=== PATIENT | male | born 1965 | race Caucasian/White ===

== ENCOUNTER → 2017-11-23 12:21 | Outpatient (CLI) | payer OTHER, SELFPAY ==
--- NOTE | 2017-11-23 12:30 | STEWCON_ITS ---
Reason For Study: CHEST PAIN Stress Results Protocol: Osvaldo Protocol Maximum Predicted HR: 170 bpm Target HR: 145 bpm% Max imum Predicted HR: 108 % DurationHeart Rate Stage (mm:ss) (bpm) BPCom ment BASELINE 73 118/70 .3 CC DEFINITY STAGE 1 3:00 11 4 162/88 STAGE 2 3:00 13 4 180/86 STAGE 3 3:00 16 6 200/76 STAGE 4 2:00 18 4 / .2 CC DEFINITY RECOVERY 97 130/76 Stress Duration: 11:00 mm:ss Maximum Stress HR: 184 bpmME TS: 13 Baseline Echocardiogram Findings Stress Echo Wall motion Data Resting WMIntermediate WMStress WM Resting Wall Motion Wall Motion Stress All segments Normal. All segments Hyperkinetic. Ejection Fraction 60 %. Ejection Fraction 75 %. Stress Results Heart rate response: appropriate Blood pressure response: normal resting BP - exaggerated response Arrhythmias: rare PVC during exercise Functional capacity: good Stopped secondary to: dsypnea. EKG Data The baseline ECG displays normal sinus rhythm. Peak exercise ECG: No obvious ECG changes. Symptoms with Stress No c/o chest discomfort during exercise / recovery. Interpretation Summary Negative (adequate) stress echocardiogram Ordering Physician: Van Ambriz Referring Physician: Van Ambriz Performed By: Ruchi Tucker RDCS
== END ==
PROVIDERS: Family Provider Family Medicine; PCP Family Medicine; Visit Provider Family Medicine
DX: R07.9 Chest pain, unspecified (principal)
CPT/HCPCS: 93017; 93350; Q9957; A4216; C8928

== ENCOUNTER 2019-10-13 12:53 | Day surgery (SDC) | payer OTHER, SELFPAY ==
[2019-10-13 13:20] VITALS: BP 142/69; PULSE 74; RESP 16; TEMP 36.7; O2SAT 95; BMI 30.7
[2019-10-13] MEDS: Cephalexin 500 MG Capsule 2000 MG PO (13:26)
--- NOTE | 2019-10-13 13:50 | RAD_ITS ---
STUDY: X-RAY RIGHT FOOT, FIRST TOE REASON FOR EXAM: Male, 54 years old. Intraoperative c-arm images for excision, ganglion cyst and exostosis of 1st toe TECHNIQUE: 2 view(s) of the toe were obtained. COMPARISON: None. FINDINGS: Normal visualized metatarsus. Normal metatarsophalangeal (M.T.P) joint. Normal interphalangeal joints. Normal phalanges and interphalangeal joints. The soft tissue structures are unremarkable. RAD/Toe(s) Min 2 Views IMPRESSION: Normal x-ray of the toe. Electronically Signed: Shahid Barlow MD at 16:36 EST , Service support ,
--- NOTE | 2019-10-13 14:00 | CYST_PTH ---
PATIENT: MATT CARREON [place] [facility] [place][id number] AGE/SX: 54/M ROOM: RE10/13/[address]: Dr. Tarun Aldana DPM : [id number] BED: DIS: 10/13/2019 SPEC #: [id number] RECD: 10/13/19 15:54 STATUS: DONNIE RELupe #: [id number] ALEXIS: 10/13/19 14:[address]: Tarun Aldana DEPT: SURGICAL PATHOLOGY RECD BY: Serjio Galicia ENTERED: 10/14/19 10:48 SP TYPE: Cyst OTHR DR: Dr. Van Ambriz MD Tissues: CYST Procedures: Surgery Specimen Level III HEADER OPERATION: Excision ganglion cyst and exostosis of first toe PRE-OP DIAGNOSIS: Cyst right first toe TISSUE SUBMITTED: Right first toe cyst MICROSCOPIC DIAGNOSIS Right first toe cyst: Fragments of fibroadipose tissue, fibroconnective tissue and synovial tissue with reactive changes, clinically ganglion cyst. See comment. SJ:cortney 10/16/19 COMMENT Obvious changes consistent with ganglion cyst are not seen. Correlation with clinical findings and appropriate follow up are necessary. Case has been reviewed in consultation with Dr. Diaz who concurs with the above diagnosis. IDC:AM MICROSCOPIC DESCRIPTION Slides are reviewed. GROSS DESCRIPTION Received in fixative is one container labeled with the patient's name and designated right first toe cyst. The specimen consists of multiple irregular fragments of rey soft tissue that in aggregate measure 1.2 x 1 x 0.2 cm. The specimen is totally submitted in one cassette. / AM:cortney 10/14/19 TC:5 CPT: 63774
[2019-10-13] MEDS: Bupivacaine Mpf 0.5% 30 ML VIAL (14:20)
--- NOTE | 2019-10-13 15:09 | OP.PCM_ITS ---
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 Larry Moran Type of Anesthesia:: Local Specimen's removed: Excised cyst and exostosis from right 1st toe sent to pathology Estimated Blood Loss (mL): 1mL Description of Procedure: Indications: This is a 54 year old gentleman with painful mass to the top of the right 1st toe. Clinically this is consistent with a ganglion cyst and exostosis dorsal right 1st toe at level of the interphalangeal joint. This is painful in shoes. This persists despite nonsurgical care. He has elected to undergo surgical intervention - excision of cyst and exostectomy from dorsal right 1st toe. This was discussed with him in detail, reviewed the possible benefits vs risks, goals, expectations, alternative options, and typical healing/post op recovery. The consent forms were reviewed with him, and he freely signed them. All of his questions were answered. No guarantees or warranties were given nor implied. He elected and requested to have this completed with just local anesthesia. Operative Procedure: The patient was brought back into the operating room and was placed on the operating room table in the supine position. He was carefully secured to the operating room table with a safety belt around the waist. A time out was performed and the patient was properly identified and the surgical plan was confirmed. The patient received 2,000 milligrams of oral Keflex for antibiotic prophylaxis. A well padded pneumatic tourniquet was applied around the patient's right ankle. A total of 20mL of 0.5% Bupivacaine plain was given as a regional nerve block around the 1st ray on the right foot after the overlying skin was cleansed with 70% Isopropyl alcohol. The right foot was scrubbed, prepped, draped in the usual aseptic fashion. A yadi drain was placed around the base of the right 1st toe as a digital tourniquet. There was soft tissue mass and underlying bone prominence to the level of the dorsal 1st toe at the interphalangeal joint level. An incision was overlying the dorsal aspect of the mass. Careful dissection was completed through the subcutaneous tissue layer. The mass was identified. It was soft and fluid filled consistent with a ganglion cyst. The cyst was carefully disected free, tracing the stalk which was coming from the hallux interphalangeal joint. The cyst, including the stalk, were dissected free and was passed from the surgical site and sent to pathology for further evaluation. It was noted the cyst was filled with clear jelly like fluid consistent with synovial joint fluid. Underlying the excised cyst there was noted to be some prominent bone consistent with a small dorsal exostosis to the site, which was resected using a bone cutting rongeur. The excised exostosis was passed from the surgical site. It was sent with the excised cyst as specimen. The hallux interphalangeal joint, bone and rest of the soft tissues to the area were otherwise noted to be normal, healthy, and viable. The mass was completely excised as noted above. This was confirmed with intra operative fluoroscopy, images was saved. The surgical site was stable. The site was flushed out with copious amounts of normal saline solution. The subcutaneous tissue was reapproximated using 4-0 Vicryl. The skin was reapproximated using 3-0 Nylon. The yadi drain was removed (total tourniquet time was 27 minutes), and there was immediate return of warmth and perfusion to the toe, with normal temperature gradient and CFT < 2 seconds. Hemostasis was achieved. A dressing was applied which consisted of Betadine soaked adaptic, 4x4 gauze, Kerlix and Coban bandage, being sure to apply it not to tight. The patient tolerated the above operative procedure well at the local anesthesia well with no complication. The patient was transported to the recovery room with vital signs stable and in good condition. Post operative orders were placed. Post operative instructions were reviewed and dispensed verbal and written. Keep foot elevated for at least 50 minutes of every hour, keep dressing clean, dry and intact until Sunday at which time dressing instructions were reviewed and dispensed with patient and his (who was with him today). Keep foot protected in surgical shoe when on foot. No driving. Prescription for [place] 5/325mg 1-2 tabs PO q 6 hours prn pain was prescribed. Hhe is to follow up within 1 week or sooner if needed. Grafts/Implants Used: None - Complications None
--- NOTE | 2019-10-13 15:10 | PCM.DC.POD ---
Discharge Diet: Light diet - advance as tolerated Discharge Activity: May Not Drive Weight Bearing Status: - - Minimize/limit weightbearing to right foot Keep extremity elevated above heart level: Right Leg - Keep right foot elevated at least 50 minutes an hour Call your doctor if your incision/area has: Continuous Slow Oozing, Sudden Increased Bleeding, Foul Smelling Discharge Call your doctor if you observe: Fever of 101 or Higher, Shortness of breath, Chest pain, Calf discomfort, Uncontrolled pain Cleanse incision/area with: - - Keep dressing on right foot clean, intact and dry, ok to remove on Sunday10/17/19; at that time remove cleanse with normal soap and water - no soaking. Pat dry with clean towel, paint with betadine solution and apply overlying gauze dressing - change daily starting on Sunday10/17/19 Allergies/Adverse Reactions: Allergies No Known Allergies Allergy (Verified 10/13/19 13:19) Medications to take at Discharge Hydrochlorothiazide [Hctz] 25 mg PO DAILY 10/10/19 Losartan Potassium [Cozaar] 50 mg PO DAILY 10/10/19 Hydrocodone/Acetaminophen [[place] 5-325 Tablet] 1 - 2 ea PO Q6H PRN PRN 2 Days #10 tab 10/13/19 The following prescriptions were given: Hydrocodone/Acetaminophen [[place] 5-325 Tablet] 1 - 2 ea PO Q6H PRN PRN 2 Days #10 tab PRN Reason: Pain Score 1-10/10 Prescription Printed Primary Care Physician: Van Ambriz MD [Primary Care Provider] - Test Results: Test results from this visit will be discussed in further detail at your follow-up appointment, if applicable. Please Follow Up With: Tarun Aldana DPM - call Dr. Aldana if needed. Office: [phone] or When: 1 week, sooner if needed
== END 2019-10-13 15:37 | disposition home or self-care (01) ==
LOC: SDC 12:57 → AC 13:01
PROVIDERS: Family Provider Family Medicine; PCP Family Medicine; Referring Provider Podiatrist; Visit Provider Podiatrist
PROC: (CPT 28092; principal; 2019-10-13 13:45)
DX: M67.471 Ganglion, right ankle and foot (principal); M25.774 Osteophyte, right foot; M89.9 Disorder of bone, unspecified; M20.5X1 Other deformities of toe(s) (acquired), right foot; M20.5X2 Other deformities of toe(s) (acquired), left foot; Z79.899 Other long term (current) drug therapy; Z86.718 Personal history of other venous thrombosis and embolism
CPT/HCPCS: 28092; 28108; 73660; 76000; 88304

== ENCOUNTER 2019-10-18 12:26 | Emergency (ER) | payer OTHER, SELFPAY ==
[2019-10-18 12:27] VITALS: BP 140/87; PULSE 93; RESP 17; TEMP 36.4; O2SAT 96; BMI 30.6
--- NOTE | 2019-10-18 12:33 | VDLE_ITS ---
Reason For Study: Pain RIGHT GSV is normal. CFV is compressible, spontaneous, phasic, competent and demonstrates normal augmentation. FV is compressible, spontaneous, phasic, competent and demonstrates normal augmentation. POP V is compressible, spontaneous, phasic, competent and demonstrates normal augmentation. T/P Trunk is compressible. PTV is compressible. RT PerV is compressible. Rt SoleusV is dilated and non compressible consistent with acute DVT Patient unable to tolerate compression in the Rt Groin; relied on color doppler. Procedure Exam performed portable in ED. A preliminary report was called and/or faxed to Dr. Maurice. Interpretation Summary Right great saphenous vein appears patent and compressible segmentally. Acute deep venous thrombosis right soleus vein Ordering Physician: Anne-Marie Maurice Referring Physician: Van Ambriz Performed By: Geno Ashton RDCS, RVT
--- NOTE | 2019-10-18 12:49 | ED.VIS.GEN ---
History of Present Illness Chief Complaint: Lower Extremity Injury Detail of Chief Complaint: Right calf pain Informant: Patient Onset: Days - 3 days Timing: Waxes and wanes Current Severity: Mild Maximum Severity: Mild Narrative: Patient had a ganglion cyst removed from his right great toe on October 13. Over the past 3 days he has noted some tightness in his calf. He is unsure if he pulled a muscle secondary to his antalgic gait. He does have a history of upper extremity DVT so the doctor sent him in to rule out DVT. 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 - Past Medical History (1) Hypertension Status: Chronic (2) DVT (deep venous thrombosis) Status: Resolved Past Medical History - Allergies and Home Meds Allergies/Adverse Reactions: Allergies No Known Allergies Allergy (Verified 10/18/19 12:26) Primary Care Physician: Van Ambriz MD [Primary Care Provider] - Doctors: Dr. Aldana Lives: With Family Smoking Status: Never smoker Review of Systems General: Denies: Chills, Fever Eyes: Denies: Visual changes - bilaterally ENT: Denies: Bilateral ear pain Cardiovascular: Denies: Chest pain Respiratory: Denies: Dyspnea, Cough Gastrointestinal: Denies: Abdominal pain, Nausea, Vomiting, Diarrhea Musculoskeletal: Reports: Extremity Pain Skin: Denies: Rash Neurological: Denies: Headache Hematologic: Denies: Easy bruising, Easy bleeding Allergy: Denies: Uticaria Physical Exam Vital Signs/Narrative: Vital Signs Temp Pulse Resp BP Pulse Ox 10/18/19 12:27 97.5 F L 93 17 140/87 H 96 Inital Vital Signs reviewed: Yes General: Well nourished, Well developed Head: Normocephalic ENT: Moist mucous membranes Neck: Supple Cardiovascular: Regular rate, Regular rhythm Respiratory: No distress, CTA bilaterally Abdomen: Soft, Nontender Extremities: Calf Tenderness - Right lower extremity calf tenderness. No appreciable edema. Right great toe dressing is in place. Strong distal pulses. Skin: Normal color Neurological: Alert, Oriented x3 Psychological: Normal affect Diagnostic/Tx/Re-eval Venous ultrasound reveals clot in the right soleus vein below the knee. - Medical Decision Making Discussed test results with patient. He did not care whether we started blood thinners or have him follow-up for repeat imaging. I spoke with Dr. Aldana who states he typically does not treat these but mostly sees them treated with medication. I spoke with Dr. Grossman, on-call for the patient's primary care physician. He preferred to treat with dinner and patient be started on Xarelto. Patient is to follow-up with Dr. Ambriz in the office. ED Disposition - Plan for ED Patient: Disposition: Home or Assisted Living Diagnosis: DVT (deep venous thrombosis) Instructions: Dvt Prescriptions: Rivaroxaban [Xarelto] 15 mg PO BID #42 tab Transmission Status: Pending to [id number] Referrals: Van Ambriz MD [Primary Care Provider] - 1-2 Weeks
[2019-10-18] MEDS: Rivaroxaban 15 MG Tablet PO (16:02)
[2019-10-18 16:03] VITALS: RESP 16
--- NOTE | 2019-10-18 16:04 | ED.RN ---
REVIEWED D/C INSTRUCTIONS, FOLLOW UP CARE, PRESCRIPTION, AND S/S THAT WOULD WARRANT A RETURN TO THE ED WITH PT. PT VERBALIZED AN UNDERSTANDING AND DENIES FURTHER QUESTIONS FOR THIS RN. PT SKIN P/W/D, RESP EVEN AND UNLABORED, PT A&O X 3, NO DISTRESS NOTED. PT AMBULATED OUT OF ED, GAIT STEADY.
== END 2019-10-18 16:05 | disposition home or self-care (01) ==
PROVIDERS: Emergency Provider Emergency Medicine; Family Provider Family Medicine; PCP Family Medicine
DX: I82.461 Acute embolism and thrombosis of right calf muscular vein (principal); I10 Essential (primary) hypertension; Z86.718 Personal history of other venous thrombosis and embolism
CPT/HCPCS: 93971; 99283

== ENCOUNTER 2023-02-14 20:32 | Emergency (ER) | payer OTHER, SELFPAY ==
[2023-02-14 20:32] VITALS: BP 157/113; PULSE 81; RESP 18; TEMP 36.6; O2SAT 99; BMI 32.3
--- NOTE | 2023-02-14 23:26 | EDS_ITS ---
HPI History of Present Illness Chief Complaint: Laceration Detail of Chief Complaint: Chin laceration Informant: patient Onset/Context/Timing Onset: Today Narrative Narrative: Patient presents with a laceration to his chin after being struck by a baseball that was thrown. He denies loss of consciousness. Teeth feel stable. Last tetanus was 2016. [facility] Medical History DVT (deep venous thrombosis) Hypertension Home Medications hydrochlorothiazide 25 mg tablet 25 mg PO QHS 10/10/19 [History Last Taken 10/12/19] losartan 50 mg tablet 50 mg PO QHS 10/10/19 [History Last Taken 10/12/19] Allergy/AdvReac Type Severity Reaction Status Date / Time No Known Allergies Allergy Verified 02/14/23 20:34 Social History Smoking Status: Never smoker ROS ROS ED Constitutional Constitutional ED: Denies chills or fever(s) Eyes Eyes: Denies change in vision ENT ENT ED: Denies rhinorrhea or sore throat Cardiovascular Cardiovascular: Denies chest pain Respiratory/Chest Respiratory/Chest: Denies cough or dyspnea Gastrointestinal Gastrointestinal: Denies abdominal pain Musculoskeletal Musculoskeletal: Denies back pain or neck pain Integumentary Reports other Details: Chin laceration Neurologic Neurologic: Denies paresthesias Hematologic/Lymphatic Hematologic/Lymphatic: Denies easy bleeding or easy bruising EXAM Physical Exam Const Vital Signs: 02/14/23 20:32 Temperature 97.9 F Temperature Source Temporal Pulse Rate 81 Respiratory Rate 18 Blood Pressure 157/113 H Blood Pressure Mean 127 Pulse Ox 99 Oxygen Delivery Method Room Air Positive well nourished and well developed General Appearance ED: well developed HEENT HEENT Narrative: 1.5 cm Y-shaped laceration along the left lower chin border. Mild bleeding. Teeth are stable. No mandibular tenderness. Eyes PERRL and EOMs intact bilaterally Neck full ROM Chest Wall inspection of chest normal and palpation of chest normal Resp normal respiratory effort and clear to auscultation bilaterally Cardio regular rhythm Rate: regular rate Extremity normal to inspection Neuro oriented x3 and no focal motor deficits Motor Exam: strength 5/5 throughout PROC Procedures Lacerations Chin laceration: Length: 0.59 in Depth: Sub Q Laceration repair: Irrigated, Lidocaine and Local Number of Sutures/Gianluca: 2 Suture Information: Ethilon, Simple and 5-0 MDM MDM MDM Narrative Medical decision making narrative: Tetanus update is provided. A total of 2.5 cc 1% lidocaine is used locally a round the wound. He receives good anesthesia. Wound is cleansed and irrigated. 2 simple interrupted sutures of 5-0 nylon are placed with good approximation of the wound. No active bleeding at this time. Bacitracin applied. Patient is to have sutures removed in 5 days. Wound care discussed. Discharge Plan Triage Chief Complaint: Laceration ED Provider: Anne-Marie Maurice Dx/Rx/DC Orders Clinical Impression: Chin laceration Instructions: ED Laceration, Chin, Suture or Tape Prescriptions: No Action losartan 50 MG tablet 50 mg PO QHS hydrochlorothiazide 25 MG tablet 25 mg PO QHS Primary Care Provider: Van Ambriz Referrals: Van Ambriz MD [Primary Care Provider] - 3-5 Days suture removal Disposition Disposition: Home, Self Care
[2023-02-14] MEDS: Diphth,Pertuss(Acell),Tet Vac 0.5 ML Vial IM (23:27)
[2023-02-14] MEDS: Lidocaine 1% (20 ml mdv) 20 ML Vial INFILT (23:27)
== END 2023-02-14 23:32 | disposition home or self-care (01) ==
PROVIDERS: Emergency Provider Emergency Medicine; PCP Family Medicine; Visit Provider Emergency Medicine
DX: S01.81XA Laceration without foreign body of other part of head, initial encounter (principal); I10 Essential (primary) hypertension; W21.03XA Struck by baseball, initial encounter; Z23 Encounter for immunization
CPT/HCPCS: 12011; 90471; 90715; 99282